=== PATIENT | male | born 1970 | race Caucasian/White ===

== ENCOUNTER 2017-06-19 18:57 | Emergency (ER) | payer MEDICAID ==
[2017-06-19 18:57] VITALS: BMI 20.3
[2017-06-19 19:02] VITALS: TEMP 97.8; O2SAT 96
--- NOTE | 2017-06-19 20:04 | ED PDOC ---
Syncope/Near Syncope/Dizziness Time Seen by Provider: 06/19/17 19:38 Chief Complaint (Nursing): Substance Abuse Chief Complaint (Provider): syncope History Per: Patient History/Exam Limitations: no limitations Onset/Duration Of Symptoms: Sudden Onset Current Symptoms Are (Timing): Gone Now Additional Complaint(s): 46 year old male with medical history of HIV and bipolar disorder, presents to the emergency department for an evaluation of syncope after patient's son called 911 when he witnessed patient passing out. Upon arrival to ED, patient is asking to leave as he is feeling well and had passed out due to being out in the heat today. He is not offering any complaints and denies any head injury, headache, chest pain, drug or alcohol use. PMD: none provided Past Medical History Reviewed: Historical Data, Nursing Documentation, Vital Signs Vital Signs: Last Vital Signs Temp 97.8 F 06/19/17 18:59 Pulse 140 H 06/19/17 18:59 Resp 16 06/19/17 18:59 BP 166/100 H 06/19/17 18:59 Pulse Ox 96 06/19/17 18:59 - Medical History PMH: Anxiety, Asthma, Bipolar Disorder, Depression, HIV Denies: Diabetes, Hepatitis, HTN, Seizures, Sexually Transmitted Disease - Surgical History Surgical History: No Surg Hx - Family History Family History: States: Unknown Family Hx - Social History Alcohol: None Drugs: Denies - Immunization History Hx Tetanus Toxoid Vaccination: No Hx Influenza Vaccination: No Hx Pneumococcal Vaccination: No - Home Medications Home Medications: Ambulatory Orders Medication Instructions Recorded Ritonavir [Norvir] 100 mg PO DAILY 08/03/14 lamiVUDine/Zidovudine [Combivir 1 cap DAILY 08/03/14 150 MG-300 MG] Gabapentin [Neurontin] 300 mg PO TID #0 cap 08/10/14 traZODone [Desyrel] 50 mg PO HS PRN #0 tab 08/10/14 Acetaminophen [Tylenol 650 mg PO Q6 PRN #0 udc 11/10/14 650mg/20.3ml solution UD] Albuterol/Ipratropium [Duoneb 3 3 ml INH RQ6 #0 neb 11/10/14 mg/0.5 mg (3 ml) UD] Famotidine [Pepcid] 20 mg IVP DAILY #0 vial 11/10/14 Gabapentin [Neurontin] 300 mg PO TID #0 cap 11/10/14 Ibuprofen [Motrin Tab] 600 mg PO TID PRN #0 tab 11/10/14 Lactobacillus Acidophilus [Bacid 1 cap PO BID #0 cap 11/10/14 Acidophilus] Nicotine 21 mg/24 hr [Nicoderm Cq] 1 patch TD DAILY #0 patch 11/10/14 QUEtiapine [SEROquel] 200 mg PO HS #0 tab 11/10/14 Vancomycin [Vancocin (ORAL OR 250 mg PO QID #56 soln 11/10/14 RECTAL USE)] traZODone [Desyrel] 50 mg PO HS #0 tab 11/10/14 traZODone [Desyrel] 100 mg PO HS PRN #0 tab 11/10/14 - Allergies Allergies/Adverse Reactions: Allergies Allergy/AdvReac Type Severity Reaction Status Date / Time No Known Allergies Allergy Verified 08/03/14 12:57 Review of Systems ROS Statement: Except As Marked, All Systems Reviewed And Found Negative Cardiovascular: Negative for: Chest Pain Neurological: Positive for: Other (syncope). Negative for: Headache (head injury) Physical Exam - Reviewed Nursing Documentation Reviewed: Yes Vital Signs Reviewed: Yes - Physical Exam Appears: Positive for: Non-toxic, No Acute Distress Head Exam: Positive for: ATRAUMATIC, NORMAL INSPECTION, NORMOCEPHALIC Skin: Positive for: Normal Color Eye Exam: Positive for: Normal appearance, EOMI Cardiovascular/Chest: Positive for: Regular Rate, Rhythm Respiratory: Negative for: Respiratory Distress Extremity: Positive for: Normal ROM (upper/lower) Neurologic/Psych: Positive for: Alert, Oriented, Gait (steady), Other (no slurred speech). Negative for: Motor/Sensory Deficits - ECG O2 Sat by Pulse Oximetry: 96 (RA) Pulse Ox Interpretation: Normal Medical Decision Making Medical Decision Making: Initial Impression: Syncope Time: 1950 --Provider discussed with patient the benefits of further evaluation in ED as patient's HR was elevated. Patient insists on going home. --Patient is awake, alert with stable vitals. His sister offers to take him home. --Patient left without completion of treatment. Scribe Attestation: Documented by Aria Muniz, acting as a scribe for Cristobal Burnett MD. Provider Scribe Attestation: All medical record entries made by the Scribe were at my direction and personally dictated by me. I have reviewed the chart and agree that the record accurately reflects my personal performance of the history, physical exam, medical decision making, and the department course for this patient. I have also personally directed, reviewed, and agree with the discharge instructions and disposition. Disposition - Clinical Impression Clinical Impression: Syncope - Patient ED Disposition Is Patient to be Admitted: No Counseled Patient/Family Regarding: Studies Performed, Diagnosis - Disposition Disposition: Left W/O Treatment Disposition Time: 19:50 Condition: STABLE
[2017-06-19 20:57] VITALS: BP 168/88; PULSE 109; RESP 18
== END 2017-06-19 19:46 | disposition left against medical advice (07) ==
LOC: H.ER 18:57
DX: R55 Syncope and collapse (principal); F31.9 Bipolar disorder, unspecified; F41.9 Anxiety disorder, unspecified; J45.909 Unspecified asthma, uncomplicated; B20 Human immunodeficiency virus [HIV] disease